=== PATIENT | male | born 1940 | race Two or more races ===

== ENCOUNTER 2016-06-30 03:46 | Emergency (ER) | payer OTHER ==
[~2016-06-30] VITALS: Ht 177.8 cm; Wt 90.7 kg
[2016-06-30] MEDS ORDERED: methylPREDNISolone SOD SUCC 125 MG/2 ML VL IV ONE (04:00)
[2016-06-30] MEDS ORDERED: IPRATROPIUM BROM 0.5 MG/2.5ML INH SOL NEB ONE (04:00)
[2016-06-30] MEDS ORDERED: ALBUTEROL SULF 2.5 MG/0.5ML(0.5%) NEB SOLN NEB ONE (04:00)
[2016-06-30 04:20] LABS: Basophils # (auto) 0 uL; Basophils % (auto) 0.2 % (0.0-2.0); Eosinophils # (auto) 0.1 uL; Eosinophils % (auto) 0.8 % (0.0-7.0); Hemoglobin 13.1 g/dL (13.5-17.5); Lymphocytes # (auto) 0.5 uL; Lymphocytes % (auto) 3.8 % (10.0-50.0); Mean Corpuscular Hgb Conc. 32.7 g/dL (32.0-36.0); Mean Corpuscular Volume 91.5 fL (80.0-100.0); Mean Platelet Volume 10.1 fL (7.4-10.4); Monocytes # (auto) 0.5 uL; Monocytes % (auto) 4.1 % (0.0-12.0); Neutrophils # (auto) 12.2 uL; Neutrophils % (auto) 91.1 % (37.0-80.0); Platelet Count (auto) 110 10^3/uL (140-450); Red Cell Distribution Width 17.1 % (11.6-16.0); White Blood Cell 13.4 10^3/uL (4.4-10.8)
[2016-06-30 04:43] LABS: Potassium 4.7 mmol/L (3.5-5.1)
[2016-06-30 04:44] LABS: Albumin 2.5 g/dL (3.4-5.0); BUN/Creatinine Ratio 11.1; Bilirubin, Total 1.3 mg/dL (0.2-1.0); Calcium 8.3 mg/dL (8.5-10.1); Magnesium 1.9 mg/dL (1.6-2.6); Total Protein 7.7 g/dL (6.4-8.2)
[2016-06-30 04:49] LABS: Prothrombin Time 13.5 sec (9.37-12.3)
[2016-06-30 04:50] LABS: INR 1.25 (0.9-1.15)
[2016-06-30 05:11] LABS: B-Type Natriuretic Peptide 93.9 pg/mL (0-100); Temperature: 22.3 C (20.0-25.0)
[2016-06-30] MEDS ORDERED: HYDROmorphone HCL 2 MG/ML VL IV ONE (05:45)
[2016-06-30] MEDS ORDERED: ONDANSETRON HCL 4 MG/2 ML VIAL IV ONE (05:45)
[2016-06-30] MEDS ORDERED: SODIUM CHLORIDE 0.9% 1,000 ML IV ONE ×2 (06:00→07:15)
[2016-06-30] MEDS ORDERED: SODIUM CHLORIDE 0.9% 500 ML IV ONE ×2 (06:46→11:45)
[2016-06-30] MEDS ORDERED: cefTRIAXone 1GM/50ML D5W 50 ML IV ONE (07:00)
[2016-06-30 07:48] LABS: Urine Bilirubin Negative (Negative); Urine Color Yellow (Yellow); Urine Glucose Normal (Normal); Urine Ketone Negative (Negative); Urine Mucus FEW (None Seen); Urine Nitrite Negative (Negative); Urine RBC 156 /hpf (0 - 3); Urine Squamous Epithelial Cell FEW /hpf (<5); Urine Urobilinogen Normal (Negative); Urine WBC Clumps PRESENT /hpf (None Seen); Urine pH 6.5 (5.0-8.0)
[2016-06-30 08:14] LABS: Urine Blood 2+ /uL (Negative)
[2016-06-30 08:41] LABS: Lactic Acid w/Reflex 3.4 mmol/L (0.4-2.0)
[2016-06-30 08:44] LABS: REFLEX LACTIC ACID YES OR NO YES
[2016-06-30 15:10] VITALS: BP 110/74
== END 2016-06-30 15:18 | disposition short-term general hospital (02) ==
LOC: ER 03:48
DX: S32.009A Unspecified fracture of unspecified lumbar vertebra, initial encounter for closed fracture (principal); I48.91 Unspecified atrial fibrillation; I25.10 Atherosclerotic heart disease of native coronary artery without angina pectoris; I50.9 Heart failure, unspecified; J44.1 Chronic obstructive pulmonary disease with (acute) exacerbation; I11.0 Hypertensive heart disease with heart failure; R06.00 Dyspnea, unspecified; E46 Unspecified protein-calorie malnutrition; Z87.442 Personal history of urinary calculi; Z68.28 Body mass index [BMI] 28.0-28.9, adult
CPT/HCPCS: 36415; 36600; 71010; 74176; 80053; 81001; 82805; 83605; 83735; 83880; 84443; 84484; 85025; 85610; 85730; 87040; 87077; 87086; 87088; 87186; 87205; 93005; 94640; 96361; 96365; 96375; 99285; J0696; J2930; J7030; J7040; 51702

== ENCOUNTER 2016-08-12 04:39 | Observation (INO) | payer OTHER ==
[~2016-08-12] VITALS: Ht 180.3 cm; Wt 49.9 kg
[2016-08-12] MEDS ORDERED: SODIUM CHLORIDE 0.9% 1,000 ML IV ONE ×3 (06:31→14:45)
[2016-08-12 07:17] LABS: Basophils # (auto) 0 uL; Basophils % (auto) 0.1 % (0.0-2.0); Eosinophils # (auto) 0 uL; Eosinophils % (auto) 0.2 % (0.0-7.0); Hematocrit 33.9 % (41.0-53.0); Hemoglobin 11.2 g/dL (13.5-17.5); Lymphocytes # (auto) 0.4 uL; Lymphocytes % (auto) 3.5 % (10.0-50.0); Mean Corpuscular Hemoglobin 30.1 pg (28.0-32.0); Mean Corpuscular Volume 91.3 fL (80.0-100.0); Mean Platelet Volume 10.1 fL (7.4-10.4); Monocytes # (auto) 0.7 uL; Monocytes % (auto) 6.8 % (0.0-12.0); Neutrophils # (auto) 9.8 uL; Neutrophils % (auto) 89.4 % (37.0-80.0); Platelet Count (auto) 93 10^3/uL (140-450); Red Cell Distribution Width 17.4 % (11.6-16.0); White Blood Cell 10.9 10^3/uL (4.4-10.8)
[2016-08-12 07:39] LABS: Anion Gap 11 (5-15); Aspartate Aminotransferase 27 U/L (15-37); BUN/Creatinine Ratio 9.2; Blood Urea Nitrogen 14 mg/dL (7-18); Carbon Dioxide 21 mmol/L (21-32); Chloride 110 mmol/L (98-107); GFR African American 57 mL/min; GFR Non-African American 47 mL/min; Glucose 114 mg/dL (74-106); Magnesium 2.3 mg/dL (1.6-2.6); Potassium 4.8 mmol/L (3.5-5.1); Sodium 142 mmol/L (136-145)
[2016-08-12 07:41] LABS: Lactic Acid w/Reflex 2.8 mmol/L (0.4-2.0)
[2016-08-12 07:43] LABS: REFLEX LACTIC ACID YES OR NO YES
[2016-08-12 07:44] LABS: Alkaline Phosphatase 96 U/L (45-117); Bilirubin, Total 1.5 mg/dL (0.2-1.0)
[2016-08-12 08:21] LABS: Urine Bilirubin Negative (Negative); Urine Color Yellow (Yellow); Urine Glucose Normal (Normal); Urine Ketone Negative (Negative); Urine RBC 58 /hpf (0 - 3); Urine Urobilinogen Normal (Negative); Urine WBC Clumps PRESENT /hpf (None Seen); Urine pH 6.5 (5.0-8.0)
[2016-08-12 08:22] LABS: Urine Blood 1+ /uL (Negative); Urine Nitrite POSITIVE (Negative)
[2016-08-12] MEDS ORDERED: cefTRIAXone 1GM/50ML D5W 50 ML IV ONE (11:00)
[2016-08-12 13:16] LABS: REFLEX LACTIC ACID YES OR NO NO
[2016-08-12 15:19] VITALS: BP 147/86
== END 2016-08-12 15:43 | disposition short-term general hospital (02) | DRG 947 ==
LOC: EDBD 04:39 → ER 04:49 → OVERFLOW 06:33 → ER 15:43
PROVIDERS: ADMIT Emergency Medicine; ATTEND Emergency Medicine
DX: R53.1 Weakness (principal); E43 Unspecified severe protein-calorie malnutrition; A41.9 Sepsis, unspecified organism; N12 Tubulo-interstitial nephritis, not specified as acute or chronic; I11.0 Hypertensive heart disease with heart failure; I25.10 Atherosclerotic heart disease of native coronary artery without angina pectoris; I48.91 Unspecified atrial fibrillation; I50.9 Heart failure, unspecified; J44.9 Chronic obstructive pulmonary disease, unspecified; Z87.442 Personal history of urinary calculi
CPT/HCPCS: 36415; 71020; 80053; 81001; 83605; 83735; 84484; 85025; 87040; 93005; 96361; 96365; 99285; G0378; J0696; J7030; 87077; 87147; 87186

== ENCOUNTER 2016-10-14 09:52 | Emergency (ER) | payer OTHER ==
[~2016-10-14] VITALS: Ht 175.3 cm; Wt 59.0 kg
[2016-10-14 10:43] LABS: Basophils # (auto) 0 uL; CONDITION Y; DEFINITIVE SEE PRINTOUT; Hemoglobin 11.6 g/dL (13.5-17.5); Lymphocytes # (auto) 0.7 uL; Mean Corpuscular Hgb Conc. 33.3 g/dL (32.0-36.0)
[2016-10-14 10:46] LABS: Eosinophils # (auto) 0.2 uL; Hematocrit 34.8 % (41.0-53.0); Lymphocytes % (auto) 17.3 % (10.0-50.0); Mean Corpuscular Hemoglobin 30.7 pg (28.0-32.0); Mean Corpuscular Volume 92.4 fL (80.0-100.0); Mean Platelet Volume 9.4 fL (7.4-10.4); Monocytes # (auto) 0.4 uL; Neutrophils # (auto) 2.6 uL; Neutrophils % (auto) 64.7 % (37.0-80.0); Platelet Count (auto) 33 10^3/uL (140-450); Red Cell Distribution Width 17.7 % (11.6-16.0)
[2016-10-14] MEDS ORDERED: SODIUM CHLORIDE 0.9% 1,000 ML IV ONE (10:48)
[2016-10-14 11:03] LABS: Albumin 2.4 g/dL (3.4-5.0); Anion Gap 8 (5-15); Aspartate Aminotransferase 23 U/L (15-37); BUN/Creatinine Ratio 17.6; Blood Urea Nitrogen 21 mg/dL (7-18); Calcium 8.2 mg/dL (8.5-10.1); Carbon Dioxide 22 mmol/L (21-32); Chloride 114 mmol/L (98-107); GFR African American 76 mL/min; GFR Non-African American 63 mL/min; Glucose 92 mg/dL (74-106); Magnesium 2.6 mg/dL (1.6-2.6); Potassium 4.4 mmol/L (3.5-5.1); Sodium 144 mmol/L (136-145)
[2016-10-14 11:09] LABS: Alkaline Phosphatase 108 U/L (45-117); Bilirubin, Total 0.7 mg/dL (0.2-1.0); Total Protein 7.4 g/dL (6.4-8.2)
[2016-10-14 11:35] LABS: Lactic Acid w/Reflex 2.1 mmol/L (0.4-2.0)
[2016-10-14 11:37] LABS: REFLEX LACTIC ACID YES OR NO YES
[2016-10-14 13:09] LABS: Urine Bilirubin Negative (Negative); Urine Blood Negative /uL (Negative); Urine Color Yellow (Yellow); Urine Glucose Normal (Normal); Urine Ketone Negative (Negative); Urine RBC 3 /hpf (0 - 3); Urine Squamous Epithelial Cell FEW /hpf (<5); Urine Urobilinogen Normal (Negative); Urine pH 5.5 (5.0-8.0)
[2016-10-14 13:10] LABS: Urine Nitrite POSITIVE (Negative)
[2016-10-14] MEDS ORDERED: cefTRIAXone 1GM/50ML D5W 50 ML IV ONE (14:15)
[2016-10-14 15:15] VITALS: BP 120/72
== END 2016-10-14 15:43 | disposition home or self-care (01) ==
LOC: EDBD 09:52 → ER 09:56
DX: R41.82 Altered mental status, unspecified (principal); N39.0 Urinary tract infection, site not specified; R00.1 Bradycardia, unspecified; E43 Unspecified severe protein-calorie malnutrition; Z68.1 Body mass index [BMI] 19.9 or less, adult; F11.10 Opioid abuse, uncomplicated; I48.91 Unspecified atrial fibrillation; I25.10 Atherosclerotic heart disease of native coronary artery without angina pectoris; I11.0 Hypertensive heart disease with heart failure; J44.9 Chronic obstructive pulmonary disease, unspecified; K21.9 Gastro-esophageal reflux disease without esophagitis; Z87.442 Personal history of urinary calculi; Z86.711 Personal history of pulmonary embolism
CPT/HCPCS: 36415; 70450; 71010; 80053; 80307; 81001; 81002; 83605; 83735; 84443; 84484; 85025; 87040; 93005; 94761; 96361; 96365; 99285; J0696; J7030

== ENCOUNTER 2020-03-16 03:59 | Inpatient (IN) | payer OTHER ==
[~2020-03-16] VITALS: Ht 177.8 cm; Wt 165.8 kg
[2020-03-16] MEDS ORDERED: ASPirin 325 MG TAB PO ONE (04:30)
[2020-03-16 05:19] LABS: Basophils # (auto) 0 10 ^3/uL (0-0.2); Basophils % (auto) 1.1 % (0.0-2.0); Eosinophils # (auto) 0.1 10 ^3/uL (0-0.8); Eosinophils % (auto) 1.7 % (0.0-7.0); Hematocrit 32.4 % (41.0-53.0); Lymphocytes # (auto) 0.3 10 ^3/uL (0.4-5.4); Lymphocytes % (auto) 8.3 % (10.0-50.0); Mean Corpuscular Hemoglobin 32.5 pg (28.0-32.0); Mean Corpuscular Volume 95.4 fL (80.0-100.0); Monocytes # (auto) 0.3 10 ^3/uL (0-1.3); Monocytes % (auto) 8.2 % (0.0-12.0); Neutrophils # (auto) 3.4 10 ^3/uL (1.6-8.6); Neutrophils % (auto) 80.7 % (37.0-80.0); Red Blood Cells 3.39 10^6/uL (4.5-5.90); Red Cell Distribution Width 15.9 % (11.8-14.3); White Blood Cell 4.2 10^3/uL (4.4-10.8)
[2020-03-16 05:41] LABS: Albumin 2.6 g/dL (3.4-5.0); Calcium 7.7 mg/dL (8.5-10.1); Potassium 4.1 mmol/L (3.5-5.1)
[2020-03-16 05:46] LABS: Bilirubin, Total 0.7 mg/dL (0.2-1.0); INR 1.25 (0.9-1.15); Partial Thromboplastin Time 25.7 sec (23.0-31.2); Total Protein 6.8 g/dL (6.4-8.2)
[2020-03-16] MEDS ORDERED: IOHEXOL 350 MG/ML 100ML IJ ONE (06:34)
[2020-03-16] MEDS ORDERED: hydrALAZINE HCL 20 MG/ML VL IV PRN (09:00)
[2020-03-16] MEDS ORDERED: NITROGLYCERIN 0.4 MG SL TAB SL PRN (09:00)
[2020-03-16] MEDS ORDERED: ONDANSETRON HCL 4 MG/2 ML VIAL IV PRN (09:00)
[2020-03-16] MEDS ORDERED: ACETAMINOPHEN 500 MG TAB PO PRN (09:00)
[2020-03-16] MEDS ORDERED: MORPHINE SULFATE INJECTION 2 MG/ML SYRG IV PRN ×2 (09:00)
[2020-03-16] MEDS: ASPirin-EC 81 mg tab PO SCH (10:14)
[2020-03-16] MEDS: METOPROLOL TARTRATE 25 MG TAB PO SCH ×2 (10:15→22:00)
[2020-03-16] MEDS: FAMOTIDINE 20 MG TAB PO SCH (10:15)
[2020-03-16 11:30] LABS: CRP High Sensitivity 0.1 mg/dL (< 0.3)
[2020-03-16] MEDS: CLINDAMYCIN 300MG IV 50 ML IV SCH ×2 (14:42→22:39)
[2020-03-16] MEDS: ATORVASTATIN 20 MG TAB PO SCH (22:00)
[2020-03-17] MEDS: CLINDAMYCIN 300MG IV 50 ML IV SCH ×3 (06:12→23:07)
[2020-03-17 07:37] LABS: Basophils # (auto) 0 10 ^3/uL (0-0.2); Eosinophils # (auto) 0.1 10 ^3/uL (0-0.8); Eosinophils % (auto) 1.7 % (0.0-7.0); Hematocrit 35.1 % (41.0-53.0); Lymphocytes # (auto) 0.3 10 ^3/uL (0.4-5.4); Monocytes # (auto) 0.4 10 ^3/uL (0-1.3)
[2020-03-17 07:40] LABS: Basophils % (auto) 0.9 % (0.0-2.0); Hemoglobin 11.7 g/dL (13.5-17.5); Lymphocytes % (auto) 6.4 % (10.0-50.0); Mean Corpuscular Hemoglobin 31.8 pg (28.0-32.0); Mean Corpuscular Hgb Conc. 33.4 g/dL (32.0-36.0); Mean Corpuscular Volume 95.1 fL (80.0-100.0); Neutrophils # (auto) 4.4 10 ^3/uL (1.6-8.6); Nucleated Red Blood Cells % 0.1 %; Red Blood Cells 3.69 10^6/uL (4.5-5.90); Red Cell Distribution Width 15.8 % (11.8-14.3); White Blood Cell 5.3 10^3/uL (4.4-10.8)
[2020-03-17 07:50] LABS: INR 1.25 (0.9-1.15); Partial Thromboplastin Time 30.5 sec (23.0-31.2)
[2020-03-17 07:57] LABS: BUN/Creatinine Ratio 13.8; Calcium 8.5 mg/dL (8.5-10.1); Potassium 4.4 mmol/L (3.5-5.1)
[2020-03-17] MEDS: ASPirin-EC 81 mg tab PO SCH (10:19)
[2020-03-17] MEDS: FAMOTIDINE 20 MG TAB PO SCH (10:19)
[2020-03-17] MEDS: METOPROLOL TARTRATE 25 MG TAB PO SCH ×2 (10:25→23:05)
[2020-03-17 22:00] VITALS: BP 122/86
[2020-03-17] MEDS: ATORVASTATIN 20 MG TAB PO SCH (23:05)
[2020-03-17] MEDS: ENOXAPARIN SOD 80 MG/0.8ML SYRINGE SC SCH (23:06)
[2020-03-18 01:29] VITALS: BP 122/86
[2020-03-18] MEDS ORDERED: PNEUMOCOCCAL VACC POLYS 25 MCG/0.5 ML VIAL IM ONE (02:30)
[2020-03-18] MEDS: HYDROcodone-ACET 5/325MG TAB PO PRN (03:10)
[2020-03-18 05:00] VITALS: BP 108/63
[2020-03-18] MEDS: CLINDAMYCIN 300MG IV 50 ML IV SCH ×3 (06:39→23:23)
[2020-03-18 06:57] LABS: Basophils # (auto) 0.1 10 ^3/uL (0-0.2); Basophils % (auto) 2.7 % (0.0-2.0); Eosinophils # (auto) 0.2 10 ^3/uL (0-0.8); Eosinophils % (auto) 5.6 % (0.0-7.0); Hematocrit 36.1 % (41.0-53.0); Hemoglobin 12.1 g/dL (13.5-17.5); Lymphocytes # (auto) 0.5 10 ^3/uL (0.4-5.4); Lymphocytes % (auto) 15.7 % (10.0-50.0); Mean Corpuscular Hgb Conc. 33.6 g/dL (32.0-36.0); Mean Corpuscular Volume 95.1 fL (80.0-100.0); Monocytes # (auto) 0.4 10 ^3/uL (0-1.3); Monocytes % (auto) 11.1 % (0.0-12.0); Neutrophils # (auto) 2.2 10 ^3/uL (1.6-8.6); Neutrophils % (auto) 64.9 % (37.0-80.0); Nucleated Red Blood Cells % 0.2 %; White Blood Cell 3.5 10^3/uL (4.4-10.8)
[2020-03-18 07:10] LABS: INR 1.33 (0.9-1.15); Partial Thromboplastin Time 36.3 sec (23.0-31.2)
[2020-03-18 07:15] LABS: BUN/Creatinine Ratio 14.6; Calcium 8.3 mg/dL (8.5-10.1); Potassium 4.3 mmol/L (3.5-5.1)
[2020-03-18 08:00] VITALS: BP 127/79
[2020-03-18] MEDS: ENOXAPARIN SOD 80 MG/0.8ML SYRINGE SC SCH ×2 (10:00→23:30)
[2020-03-18] MEDS ORDERED: FAMOTIDINE 20 MG TAB PO SCH (10:00)
[2020-03-18] MEDS ORDERED: ENOXAPARIN SOD 80 MG/0.8ML SYRINGE SC SCH (10:00)
[2020-03-18] MEDS: ASPirin-EC 81 mg tab PO SCH (10:00)
[2020-03-18] MEDS: METOPROLOL TARTRATE 25 MG TAB PO SCH ×2 (10:00→23:29)
[2020-03-18] MEDS ORDERED: LIDOCAINE 2%HCL (LOCAL ANESTH.) INJ 20ML MDV ONE (10:18)
[2020-03-18] MEDS ORDERED: IODIXANOL 320MG/ML 100ML BTL IV ONE (10:18)
[2020-03-18] MEDS ORDERED: MIDAZOLAM HCL 2MG/2ML 2ml VIAL (1mg/ml) ONE (10:27)
[2020-03-18] MEDS ORDERED: ANGIOMAX 250 MG VIAL IV ONE (10:27)
[2020-03-18] MEDS ORDERED: SODIUM CHL 0.9% 0 ML ONE (10:27)
[2020-03-18] MEDS ORDERED: fentaNYL CITRATE 100 MCG/2 ML VL ONE (10:27)
[2020-03-18] MEDS: ATORVASTATIN 20 MG TAB PO SCH (23:30)
[2020-03-19] VITALS: BP 100/65
[2020-03-19] MEDS: HYDROcodone-ACET 5/325MG TAB PO PRN (02:30)
[2020-03-19 04:22] VITALS: BP 105/55
[2020-03-19] MEDS: CLINDAMYCIN 300MG IV 50 ML IV SCH (06:28)
[2020-03-19 08:00] VITALS: BP 113/68
[2020-03-19 08:34] LABS: Basophils # (auto) 0 10 ^3/uL (0-0.2); Eosinophils # (auto) 0.2 10 ^3/uL (0-0.8); Lymphocytes # (auto) 0.5 10 ^3/uL (0.4-5.4); Monocytes # (auto) 0.4 10 ^3/uL (0-1.3); Nucleated Red Blood Cells % 0.1 %
[2020-03-19 08:36] LABS: Basophils % (auto) 1.2 % (0.0-2.0); Eosinophils % (auto) 5.8 % (0.0-7.0); Hematocrit 31.7 % (41.0-53.0); Hemoglobin 10.8 g/dL (13.5-17.5); Lymphocytes % (auto) 15.7 % (10.0-50.0); Mean Corpuscular Hemoglobin 32.3 pg (28.0-32.0); Mean Corpuscular Hgb Conc. 33.9 g/dL (32.0-36.0); Mean Corpuscular Volume 95.1 fL (80.0-100.0); Monocytes % (auto) 14.1 % (0.0-12.0); Neutrophils % (auto) 63.2 % (37.0-80.0); Red Blood Cells 3.33 10^6/uL (4.5-5.90); Red Cell Distribution Width 15.9 % (11.8-14.3); White Blood Cell 3.2 10^3/uL (4.4-10.8)
[2020-03-19 09:09] LABS: Potassium 4.2 mmol/L (3.5-5.1)
[2020-03-19 09:13] LABS: Albumin 2.2 g/dL (3.4-5.0); BUN/Creatinine Ratio 19.3; Calcium 7.3 mg/dL (8.5-10.1)
[2020-03-19 09:18] LABS: Bilirubin, Total 0.7 mg/dL (0.2-1.0); Total Protein 5.7 g/dL (6.4-8.2)
== END 2020-03-19 09:00 | disposition short-term general hospital (02) | DRG 280 ==
LOC: ER 03:59 → TELE 09:00 → TELE-CENTR 03-17 18:44
PROVIDERS: ADMIT Nurse Practitioner Acute Care; ATTEND Internal Medicine
PROC: 4A023N8 Measurement of Cardiac Sampling and Pressure, Bilateral, Percutaneous Approach (ICD-10-PCS; principal; 2020-03-18)
PROC: B211YZZ Fluoroscopy of Multiple Coronary Arteries using Other Contrast (ICD-10-PCS; 2020-03-18)
PROC: B215YZZ Fluoroscopy of Left Heart using Other Contrast (ICD-10-PCS; 2020-03-18)
PROC: 4A033BC Measurement of Arterial Pressure, Coronary, Percutaneous Approach (ICD-10-PCS; 2020-03-18)
DX: I21.4 Non-ST elevation (NSTEMI) myocardial infarction (principal); I50.23 Acute on chronic systolic (congestive) heart failure; L03.116 Cellulitis of left lower limb; L03.115 Cellulitis of right lower limb; E44.0 Moderate protein-calorie malnutrition; I42.9 Cardiomyopathy, unspecified; I82.431 Acute embolism and thrombosis of right popliteal vein; N39.0 Urinary tract infection, site not specified; I11.0 Hypertensive heart disease with heart failure; Z20.822 Contact with and (suspected) exposure to COVID-19; D69.6 Thrombocytopenia, unspecified; E78.00 Pure hypercholesterolemia, unspecified; E78.5 Hyperlipidemia, unspecified; I25.10 Atherosclerotic heart disease of native coronary artery without angina pectoris; I48.0 Paroxysmal atrial fibrillation; Z68.24 Body mass index [BMI] 24.0-24.9, adult; Z86.73 Personal history of transient ischemic attack (TIA), and cerebral infarction without residual deficits
CPT/HCPCS: 36415; 71045; 71275; 80048; 80053; 80061; 83880; 84443; 84484; 85025; 85379; 85610; 85730; 86141; 86850; 86900; 86901; 87077; 87086; 87186; 87205; 87426; 93005; 93306; 93460; 93571; 93926; 93970; 96365; 99152; 99153; C1751; G0378; J2250; J3490; Q9967